=== PATIENT | female | born 1965 | race Caucasian/White ===

== ENCOUNTER → 2016-08-24 | Outpatient (CLI) | payer BC ==
[~2016-08-24] MED LIST: DESIPRAMINE; LEVAQUIN 5500 MG/TAB PO; LORTAB 5/500 501 TAB PO; PERCOCET 5/321 UDTAB PO; ZOFRAN 4MG T4 MG/TAB PO
== END ==
LOC: MC.RAD 09:46
DX: Z12.31 Encounter for screening mammogram for malignant neoplasm of breast (principal); N63 Unspecified lump in breast

== ENCOUNTER → 2016-08-26 | Outpatient (CLI) | payer BC | LOC: MC.RAD 10:12 | DX: D48.62 Neoplasm of uncertain behavior of left breast (principal) ==

== ENCOUNTER → 2016-08-30 | Outpatient (CLI) | payer BC | LOC: MC.RAD 07:41 | DX: N63 Unspecified lump in breast (principal) ==

== ENCOUNTER 2016-09-16 13:45 | Outpatient (RCR) | payer OTHER | END 2016-12-01 | LOC: WSOH | DX: M25.561 Pain in right knee (principal); W18.49XA Other slipping, tripping and stumbling without falling, initial encounter; Y99.0 Civilian activity done for income or pay ==

== ENCOUNTER → 2019-02-13 | Outpatient (CLI) | payer BC | LOC: MC.RAD 10:29 | DX: Z12.31 Encounter for screening mammogram for malignant neoplasm of breast (principal) ==